=== PATIENT | female | born 1955 | race Caucasian/White ===

== ENCOUNTER 2020-07-29 23:35 | Emergency (ER) | payer OTHER ==
[~2020-07-29] VITALS: Ht 160 cm; Wt 65.8 kg
[2020-07-29 23:35] VITALS: BP 141/85
[2020-07-29] MEDS ORDERED: LORazepam 2 MG/ML VIAL ONE (23:54)
--- NOTE | 2020-07-30 | NUR ---
Biba to bed 12
--- NOTE | 2020-07-30 00:02 | NUR ---
64 year old female coming in via ambulance for ETOH and occipital region laceration s/p fall. pt was found outside a bar bystanders and noticed the pt laying down on the ground. upon arrival pt is a/o x4. able to make conversations and speak in complete sentences. gcs 14. pupils sluggish at 7mm. respirations are even and unlabored. cbl sounds.denies headache/blurry vision. denies sob/cough. abdomen is soft and nontender. bowel sounds normoactive. no other s/sx reported by pt. awaiting MSE. pmhx: denies allx: pcn
--- NOTE | 2020-07-30 00:15 | NUR ---
pt taken to CT via bed
--- NOTE | 2020-07-30 00:30 | NUR ---
returned from CT via bed.
[2020-07-30] MEDS ORDERED: ONDANSETRON 4 MG/2 ML VIAL ONE (00:36)
[2020-07-30] MEDS ORDERED: ONDANSETRON 4 MG/2 ML VIAL IVP ONE (00:40)
[2020-07-30] MEDS ORDERED: LORazepam 2 MG/ML VIAL IM/IVP PRN (00:40)
--- NOTE | 2020-07-30 03:20 | NUR ---
IV removed, catheter intact and site benign. Applied folded 4x4 gauze and tape to stop bleeding.
[2020-07-30 03:24] VITALS: BP 130/77
--- NOTE | 2020-07-30 03:24 | NUR ---
Patient discharged with v/s stable. Written and verbal after care instructions given and explained. Patient verbalized understanding. Ambulatory with steady gait. All questions addressed prior to discharge. Advised to follow up with PMD. PT sitting in lobby waiting for son to pick her up.
== END 2020-07-30 03:24 | disposition home or self-care (01) ==
LOC: MED 23:35
DX: S00.01XA Abrasion of scalp, initial encounter (principal); F10.129 Alcohol abuse with intoxication, unspecified; Z88.0 Allergy status to penicillin; W19.XXXA Unspecified fall, initial encounter; Y93.89 Activity, other specified; Y92.89 Other specified places as the place of occurrence of the external cause; Y99.8 Other external cause status
CPT/HCPCS: 70450; 72125; 96374; 96375; 99284; J2060; J2405